=== PATIENT | male | born 1955 | race Caucasian/White ===

== ENCOUNTER 2018-06-15 15:56 | Inpatient (IN) | payer OTHER ==
--- NOTE | 2018-06-15 22:32 | PDCARCONS ---
Cardiology Consult Reason for Consult: pericardial tamponade Chief Complaint: shortness of breath, fatigue Requesting Physician: Patient was a transfer from [facility] History of Present Illness: Briefly, the patient is a 62 y/o male with history of lung cancer (ongoing left pleural drain), with work up at [facility] including a CT scan. On CT scan, there was a large pericardial effusion noted (>3 cm). Echocardiography reportedly suggested tamponade physiology given collapse of RA and RV. Patient was transferred to [facility], and upon arrival to the ICU, a stat echocardiogram was performed and interpreted by myself, at bedside. Both RA and RV collapse were noted with maximum of 4.5-5.0 cm circumferential pericardial effusion noted. Blood pressure in the ICU was noted to be 117/90 mm Hg. Mild to moderate dyspnea was noted. PND and orthopnea were noted. No fevers or chills. Discussion with patient about the noted echo findings. Risks and benefits of procedure were discussed with the patient, and rather than waiting on procedures for tomorrow with the tamponade physiology noted, the patient was taken to the cardiac medical laboratory assistant, and by both echocardiography and fluoroscopy, a pericardiocentesis was performed (see procedural note). At the conclusion of the procedure, 1850 cc of dark, pericardial fluid was easily removed. Echocardiographic review of the pericardium with limited remaining pericardial fluid noted. Lying flat, the patient was having a "burning" discomfort, but sitting up on the bed, the patient felt substantially better (per his reports). 12 point review of systems was unremarkable outside of that which was mentioned above. History Information - Allergies/Home Medication List Allergies/Adverse Reactions: No Known Allergies Allergy (Unverified 06/15/18 19:31) Home Medications: Losartan Potassium 100 mg PO DAILY 06/15/18 [Last Taken Unknown] oxyCODONE HCL/ACETAMINOPHEN [Oxycodone-Acetaminophen 10-325] 1 each PO Q4 PRN [Last Taken Unknown] I have personally reviewed and updated: family history, medical history, social history, surgical history Past Medical History: - Past Medical History hypertension Additional medical history: Lung cancer - Family History Positive for: non-pertinent - Social History Smoking Status: Former smoker Alcohol Use: None Drug Use: None Physical Exam Physical Exam: Temp Pulse Resp BP Pulse Ox 36.6 C 138 H 25 H 115/70 97 06/15/18 19:13 10/22/18 21:01 06/15/18 21:01 06/15/18 21:01 06/15/18 21:01 O2 (L/minute) 3 Constitutional: chronically ill appearing, obese, uncomfortable Eyes: PERRL, EOMI Ears, Nose, Mouth, Throat: moist mucous membranes, hearing normal Cardiovascular: JVD, pulses symmetric bilaterally, tachycardia, No edema Peripheral Pulses: 2+: dorsalis-pedis (R), dorsalis-pedis (L) Respiratory: reduced air movement Gastrointestinal: normoactive bowel sounds, soft, non-tender abdomen Skin: warm, normal color Musculoskeletal: full muscle strength Neurologic: AAOx3, sensation intact bilaterally, CN II-XII Intact Psychiatric: interacting appropriately, not anxious Lab and Imaging POC Glucose 153 mg/dL (70-100) H 06/15/18 20:13 EKG Interpretation: Positive for: other (Sinus tachycardia) A/P Assessment: Patient is a 62 y/o male with known lung cancer with pleural drain in place to the left. Pericardial tamponade was noted by echocardiography in [facility] and at [facility] (limited ICU echo with a 4.5-5.0 cm circumferential pericardial effusion with tamponade physiology - both RA and RV collapse was noted). Given the haemodynamics and the echocardiographic findings, the patient was taken to the cardiac medical laboratory assistant semi urgently for pericardiocentesis. Plan: Pericardiocentesis now. Risks and benefits of the procedure were discussed with the patient.
--- NOTE | 2018-06-15 22:49 | SUROPNOTE ---
MEME Operative Report - Surgery PROCEDURE: Pericardiocentesis INDICATION: Tamponade physiology by echocardiography PROCEDURE DETAILS: After consents were obtained, the patient was brought to the cardiac label press operator , and placed on the table in with a wedge to facilitate both comfort for the patient as well as ease of the procedure. Patient was not able to lie flat in the ICU, and there was no interest in reassessing this inability in the label press operator. Lidocaine was administered to the subxyphoid region, and following local anesthetic, a cook needle was placed without difficulty. The length of the cook needle was not long enough given the patient's girth to consistently access the pericardial sac, so the provided pericardiocentesis needle was used without difficulty to acquire consistent pericardial fluid return without pulsatile flow. Following this, a wire was placed, and under echo, then fluoro , the wire was easily placed into the pericardial sac. A dilator sheath was placed followed by the provided drain. The wire was removed, and a 60 cc syringe was used to pull 1850 cc of dark, blood colored fluid from the pericardial sac. Under fluoroscopic review, the pericardial fluid slowly was reduced with drop in heart rate noted (130-140 bpm to 120 bpm) as well as elevation in blood pressures (110-115 mm Hg systolic to 170 mm Hg systolic at the conclusion of the procedure. The patient did have complaints of pains near the conclusion of the procedure as the fluid was removed. The patient noted less discomfort sitting (then standing) post procedure versus lying flat on the bed. No complications were appreciated with this procedure. Patient was returned to the ICU
[2018-06-15] MEDS ORDERED: ACETAMINOPHEN 325 MG TAB PO PRN (22:58)
[2018-06-15] MEDS ORDERED: ONDANSETRON 4 MG/2 ML VIAL IVP PRN (22:58)
[2018-06-15] MEDS ORDERED: ONDANSETRON DISINTEGRATING 4 MG TAB PO PRN (22:58)
[2018-06-15] MEDS ORDERED: NS 1,000 ML IV SCH (23:00)
[2018-06-15] MEDS ORDERED: OXYCODONE/APAP 5/325 TAB PO PRN (23:16)
[2018-06-15] MEDS: KETOROLAC 30 MG/1 ML SDV IVP PRN (23:40)
[2018-06-15] MEDS: guaiFENesin 600 MG TAB.ER PO SCH (23:41)
[2018-06-15] MEDS ORDERED: LACTULOSE 20 GM/30 ML UDCUP PO PRN (23:55)
[2018-06-15] MEDS ORDERED: MAGNESIUM HYDROXIDE 30 ML UDCUP PO PRN (23:55)
[2018-06-15] MEDS ORDERED: BISACODYL 10 MG SUPP PR PRN (23:55)
[2018-06-15] MEDS ORDERED: POLYETHYLENE GLYCOL 3350 17 GM PKT PO PRN (23:55)
[2018-06-16 00:08] LABS: PLATELET COUNT 220 10^3/uL (150-400)
[2018-06-16] MEDS: SENNOSIDES/DOCUSATE SODIUM TAB PO SCH ×3 (00:25→23:04)
[2018-06-16] MEDS: OXYCODONE/APAP 5/325 TAB PO PRN ×3 (00:39→23:03)
[2018-06-16 00:45] LABS: INR 1.14 (0.83-1.16); PROTIME(PATIENT) 14.8 SEC (12.0-15.0)
[2018-06-16] MEDS: guaiFENesin 600 MG TAB.ER PO SCH ×3 (05:37→23:02)
[2018-06-16] MEDS: KETOROLAC 30 MG/1 ML SDV IVP PRN ×2 (05:39→14:14)
[2018-06-16] MEDS ORDERED: BACITRACIN 50,000 UNITS/10 ML SYR IRR ONE (07:40)
[2018-06-16] MEDS ORDERED: POLYMYXIN B SULFATE 500,000 UNIT/10 ML SYR IRR ONE (07:40)
--- NOTE | 2018-06-16 08:56 | ECHO ---
[email or web address] [address] [address] Main: [phone] Fax: Transthoracic Echocardiogram Name: JEB ZHAO MR#: [id number] Study Date: 06/15/2018 Study Time: 08:53 PM Date of : 1955 Age: 62 year(s) Height: 193 cm (76 in.) Weight: 117.94 kg (260 lb.) BSA: 2.48 m2 Gender: Male Examination: Limited Echo Indication: Stat pericardiocentisis Image Quality: Contrast: Requested by: Hussein Pearson BP: / Heart Rate: Rhythm: Tachycardia Indication: Stat pericardiocentisis Procedure Staff Hebrew Teacher: Codey Cruz RDCS Reading Physician: Sindy Minor MD Requesting Provider: Conclusions: This is a pre and during procedure limited echocardiogram to evaluate pericardial fluid. The intial scan demonstrated approximately 4.5 - 5 cm of fluid circumferentially around the heart. There is RV and RA collapse. 1850ml of fluid was evacuated from the pericardial space. Minimal residual effusion. Marked improvement in LV and RV diastolic filling.. Measurements: Chambers Valvular Assessment AV/MV Valvular Assessment TV/PV Normal Normal Normal Name Value Range Name Value Range Name Value Range Continued Measurements: Findings: Exam Comments: This is a pre and during procedure limited echocardiogram to evaluate pericardial fluid. The intial scan demonstrated approximately 4.5 - 5 cm of fluid circumferentially around the heart. There is RV and RA collapse. 1850ml of fluid was evacuated from the pericardial space. Minimal residual effusion. Marked improvement in LV and RV diastolic filling.. (No Signature Object) Patient: JEB ZHAO Study Date: 06/15/2018 Page 1 of 1 08:53 PM [id number]
[2018-06-16] MEDS: LOSARTAN POTASSIUM 50 MG TAB PO SCH (09:38)
--- NOTE | 2018-06-16 11:34 | PDMN ---
Medical Necessity Medical necessity: [facility] Cardiovascular Surgery or Procedure GR yo hx lung ca w/ SOB, ongoing L pleural drain, transferred from [facility] w/ large pericardial effusion >3cm, echo suggested tamponade w/ RA and RV collapse, pt taken to cardiac label press operator and pericardiocentesis performed, admit to IP status ICU.
--- NOTE | 2018-06-16 11:46 | GCON ---
INPATIENT ONCOLOGY CONSULTATION DATE OF CONSULTATION: 06/16/2018 REFERRING PHYSICIAN: Hussein Pearson DO OUTPATIENT ONCOLOGIST: Yefri Covington MD REASON FOR CONSULTATION: Metastatic rdu-eibdr-owty lung cancer with pericardial tamponade. HISTORY OF PRESENT ILLNESS: The patient is a 62-year-old former smoker with a history of non-small-c ell lung cancer. He presented this summer with metastatic disease. He had a large mass in the right upper lobe as well as a left-sided malignant pleural effusion. He had a PleurX catheter placed for drainage, which he continues to use. His tumor was high for PD-L1 expression, and he was started on therapy with pembrolizumab on February 27. He had a CT scan performed yesterday that showed improvement i n the primary mass, down to 4.3 x 1.6 cm from 6.3 x 2.4. The left pleural effusion was of smaller vo lume. The patient says that the fluid drainage has decreased in the past several weeks. However, e scan also showed evidence of a large pericardial effusion. The patient does note that he had been feeling more short of breath for the past several weeks and went to the emergency department in [facility] to seek medical attention. He was then transferred to [place] for consideration of a pericardial window. Because he had tamponade physiology, he was taken to the cardiac catheterization lab where a pericardiocentesis was performed. 1800 cc of bloody fluid was obtained. He says he is feeling muc h better. His blood pressure is normal, though he is still feeling mildly tachycardic. PAST MEDICAL HISTORY: Otherwise unremarkable. CURRENT MEDICATIONS: Include Toradol, Cozaar, Percocet. ALLERGIES: No known drug allergies. FAMILY HISTORY: Noncontributory. SOCIAL HISTORY: He is a former smoker. He lives alone. He is not currently working. REVIEW OF SYSTEMS: A 14-point review of system was negative aside from pertinent positives noted abo ve. PHYSICAL EXAMINATION: VITAL SIGNS: His temperature was 36.4, blood pressure 119/74, heart rate 112, oxygen saturation is 95% on 2 L. GENERAL: He was breathing comfortably. No acute distress. Scler ae anicteric. Oropharynx clear. NECK: Supple without lymphadenopathy. LUNGS: Clear to auscultati on bilaterally. CARDIAC: Regular rate and rhythm. No murmurs, gallops, or rubs. ABDOMEN: Normoac tive bowel sounds. Nontender. Nondistended. EXTREMITIES: Without edema. 2+ pulses. NEUROLOGIC: Alert and oriented x3. Strength and sensation were grossly intact. LABORATORY DATA: CBC was essentially normal. Basic metabolic panel was notable for a creatinine of 0.6 and BUN of 27, otherwise normal. IMPRESSION: This is a 62-year-old man with PV-L1-high lfy-cytyo-phlc lung cancer. The primary tumor appears to be responding well to first-line immunotherapy. He presented with a very large pericardi al effusion, which is almost certainly malignant. The effusion has likely been building up for quite some time, and I would not necessarily consider this a sign of failure of his therapy. I discussed the case at length with Dr. Pearson. He feels that a pericardial window procedure would st ill not be definitive, and the window may seal off and require additional procedures in the future. Therefore, we elected to simply draining the effusion until dry through the catheter and then remove it and follow the patient closely with serial echocardiograms. At which time the effusion continues to accumulate, we can consider a thorascopic approach to a window procedure at that time. Otherwise, he will continue on his immunotherapy as it does seem to be working. Thank you for this consultation. I will continue to follow the patient with you closely while he is in the hospital. /[id number]/MODL
--- NOTE | 2018-06-16 15:13 | ECHO ---
[email or web address] [address] [address] Main: [phone] Fax: Transthoracic Echocardiogram Name: JEB ZHAO MR#: [id number] Study Date: 06/16/2018 Study Time: 07:58 AM Date of : 1955 Age: 62 year(s) Height: ( ) Weight: ( ) BSA: Gender: Male Examination: Limited Echo Indication: LTD F/U tamponade; S/P pericardiocentesis Image Quality: Adequate Contrast: Requested by: Virgil Haley BP: / Heart Rate: Rhythm: Indication: LTD F/U tamponade; S/P pericardiocentesis Procedure Staff Primer Waterproofing Machine Operator: Paulette Terrell [facility] Reading Physician: Sindy Minor MD Requesting Provider: Conclusions: Normal global systolic LV function. There remains a small loculated effusion noted around the LV apex and RA. There are shaggy echodensity's noted in the pericardium mostly around the RV and LV apex. There is no evidence of tamponade. Measurements: Chambers Valvular Assessment AV/MV Valvular Assessment TV/PV Normal Normal Normal Name Value Range Name Value Range Name Value Range Continued Measurements: Findings: Left Ventricle: Normal global systolic LV function. Pericardium: There remains a small loculated effusion noted around the LV apex and RA. There are shaggy echodensity's noted in the pericardium mostly around the RV and LV apex. There is no evidence of tamponade. (No Signature Object) Patient: JEB ZHAO Study Date: 06/16/2018 Page 1 of 1 07:58 AM [id number]
--- NOTE | 2018-06-16 16:53 | ASMTCMCOM ---
CM Note CM Note Notes: 62yo male admitted for SOB, Fatigue, he transferred from [facility] with PE. He has a Hx of Lung CA. The ECHO noted a pericardial tamponade. Patient taken to cathode maker for pericardiocentesis. May not have discharge needs. Date Signed: 06/16/2018 04:53 PM Electronically Signed By:Caryn Roy LCSW
[2018-06-16] MEDS ORDERED: METOPROLOL TARTRATE 25 MG TAB PO ONE (18:11)
[2018-06-16] MEDS ORDERED: AMIODARONE HCL 100 ML IV ONE ×2 (18:40→23:00)
--- NOTE | 2018-06-16 19:09 | PDCARPN ---
Cardiology Progress Note Chief Complaint: Patient reports mild tenderness at pericardiocentesis drain site. Assessment/Plan: Assessment: 62-year-old male with history of hypertension and metastatic non-small cell lung cancer, ongoing left pleural drain, underwent CT scan at [facility] 06/15/2018, noting large pericardial effusion (greater than 3 cm). Echocardiogram done at [facility] suggesting tamponade physiology, with collapse of RA and RV. Transfer to [facility], stat echo done at that time, showing RA and RV collapse with maximum fusion of 4.5-5.0 cm. Taken immediately to tanbark laborer, in which pericardiocentesis with done, with greater than 1850 mL removed. Repeated echocardiogram on 06/16/2018, noting normal LV systolic function, small location of effusion noted around LV apex and RV, no evidence of tamponade. 06/16/2018: Patient reports significant improvement in his shortness of breath , and fatigue symptoms. Reports no chest pain or pressure. Pericardial drain with 40 more mL out since procedure. Patient noted to go in AFib with RVR, rates up to 140 BPM. Patient asymptomatic. Laboratory studies showing pericardial fluid positive for WBCs, RBCs, protein, glucose. AFB smear negative. G stain negative. Plan: 1. Pericardial effusion: Little drainage since procedure. With patient going into atrial fibrillation, drain removed with intact tip. Dr. Minor has discussed this with Dr. Pearson, who feels pericardial window is not necessary at this time. Will monitor with limited echocardiogram series, repeat limited echo in a.m.. 2. Paroxysmal atrial fibrillation: Went into atrial fibrillation this morning, rate 100s to 140s. Patient is asymptomatic. Will attempt to give 150 mg of amiodarone IV over 10 min now, to see if attempt to convert. Will start on beta -ghazala metoprolol tartrate, at 25 mg p.o. Twice daily. Patient with chads Vasc score of 1, but with recent pericardial effusion, will hold off on anticoagulation. 3. Hypertension: Blood pressure well controlled on home dose of losartan, no changes at this time. 4. Non-small cell lung cancer: Patient is currently undergoing immunotherapy. Being followed by Oncology, appreciate Dr. Magallanes consultation. 06/16/18 19:06 Subjective: He denies of any chest pressure, pain, orthopnea, PND, edema, lightheadedness, near-syncope, or syncopal events. Reports no palpitations. Feels his dyspnea on exertion has significantly improved. Reviewed/Discussed With: other (Dr Minor and Dr Ba) Objective: Vital Signs (8 Hrs) Temp Pulse Resp BP Pulse Ox 06/16/18 16:00 36.9 C 124 H 20 108/70 92 06/16/18 12:00 118 H 21 H 116/65 93 Intake/Output (24 Hrs) 06/15/18 06/16/18 06/17/18 05:59 05:59 05:59 Intake Total 100 Output Total 599 Balance -499 Intake: Oral (ml) 100 Output: Urine (ml) 550 Urinal 550 Chest Tube Output (ml) 8 Left Pleural 8 Pericardial Drain Output 41 (ml) Pericardial 41 Other: Weight 110.677 kg Intake Quantity Yes Sufficient Number of Voids Urinal 2 2 Result Diagrams: 06/17/18 03:55 06/17/18 03:55 - Physical Exam Constitutional: healthy appearing, no apparent distress Ears, Nose, Mouth, Throat: moist mucous membranes Cardiovascular: no murmurs, no rubs, no gallops, irregularly irregular, pulses symmetric bilat, No jugular vein distention, No carotid bruit Peripheral Pulses: 2+: carotid (R), carotid (L), dorsalis-pedis (R), dorsalis- pedis (L) Respiratory: other (Diminished in bases bilateral, no rhonchi, rales, or wheezing noted. No accessary muscle use, no intercostal muscle retraction noted.) Gastrointestinal: normoactive bowel sounds Skin: no rashes, warm, other (Pericardiocentesis drain removed, tip intact. Dressing change done. Left pleural effusion dressing CDI. ), No no edema (+1 peripheral edema bilateral lower extremities to knees.) Neurologic: AAOx3 Psychiatric: cooperative, interactive, following commands ICD10 Worksheet Patient Problems: Problems Problem Status Onset Pericardial effusion Acute - ICD10 Problem Qualifiers (1) Pericardial effusion
[2018-06-16] MEDS: METOPROLOL TARTRATE 25 MG TAB PO SCH (23:06)
[2018-06-17 04:37] LABS: PLATELET COUNT 192 10^3/uL (150-400)
[2018-06-17] MEDS: OXYCODONE/APAP 5/325 TAB PO PRN ×2 (08:36→20:16)
[2018-06-17] MEDS: guaiFENesin 600 MG TAB.ER PO SCH ×2 (08:37→20:11)
[2018-06-17] MEDS: SENNOSIDES/DOCUSATE SODIUM TAB PO SCH ×2 (08:37→20:12)
[2018-06-17] MEDS: METOPROLOL TARTRATE 25 MG TAB PO SCH ×2 (08:37→20:11)
[2018-06-17] MEDS: LOSARTAN POTASSIUM 50 MG TAB PO SCH (08:37)
[2018-06-17] MEDS ORDERED: AMIODARONE HCL 100 ML IV ONE (08:49)
--- NOTE | 2018-06-17 09:16 | ECHO ---
[email or web address] [address] [address] Main: [phone] Fax: Transthoracic Echocardiogram Name: JEB ZHAO MR#: [id number] Study Date: 06/17/2018 Study Time: 08:15 AM Date of : 1955 Age: 62 year(s) Height: 193 cm (76 in.) Weight: 110.68 kg (244 lb.) BSA: 2.41 m2 Gender: Male Examination: Limited Echo Indication: Pericardial effusion/eval post drain Image Quality: Contrast: Requested by: Donte Costello BP: 123 mmHg/89 mmHg Heart Rate: Rhythm: Indication: Pericardial effusion/eval post drain Procedure Staff Health Lead: Ashlee Vargas RDCS Reading Physician: Sindy Minor MD Requesting Provider: Conclusions: Normal global systolic LV function. There is a small to moderate loculated effusion containing fibrinous material anteriorly and around the RV apex. . Compared with 06/16/2018 similar findings Measurements: Chambers Valvular Assessment AV/MV Valvular Assessment TV/PV Normal Normal Normal Name Value Range Name Value Range Name Value Range Continued Measurements: Findings: Left Ventricle: Normal global systolic LV function. Exam Comments: There is a small to moderate loculated effusion containing fibrinous material anteriorly and around the RV apex. . (No Signature Object) Patient: JEB ZHAO Study Date: 06/17/2018 Page 1 of 1 08:15 AM [id number]
[2018-06-17] MEDS ORDERED: ATROPINE SULFATE 1 MG/10 ML SYR IVP ONE (10:43)
[2018-06-17] MEDS ORDERED: NS 1,000 ML IV ONE (10:43)
--- NOTE | 2018-06-17 11:17 | SOAPPROG ---
SOAP Progress Note Assessment/Plan: Assessment: 1. NSCLC, metastatic, PDL1+ 2. Pericardial effusion (malignant) 3. Atrial fibrillation - new after pericardiocentesis. Pericardial drain removed. Cardioversion scheduled for this PM. Plan: - will continue on pembrolizumab, as it appears to be effective in treating his cancer- next dose due 06/23 in [place] - will need serial echos (likely every 4-6 weeks) to monitor for recurrence of the effusion 25 min spent w/ pt and in coordination of care. 06/17/18 11:15 Subjective: somewhat tired. Objective: exam: NAD Lungs CTAB CV afib Abd: +BS NTND Ext: no edema Neuro: a+ox3. Vital Signs Temp Pulse Resp BP Pulse Ox 36.7 C 123 H 15 123/89 H 94 06/17/18 07:19 06/17/18 07:19 06/17/18 07:19 06/17/18 07:19 06/17/18 07:19 Microbiology 06/15/18 22:09 Mycobacterial Smear (CYRUS) - Final Pericardial Fluid - Aspirate 06/15/18 22:09 Gram Stain - Final Pericardial Fluid - Aspirate Laboratory Results 06/17/18 03:55 06/17/18 03:55 06/16/18 06/17/18 06/18/18 05:59 05:59 05:59 Intake Total 100 550 Output Total 599 Balance -499 550 PT 14.8 SEC (12.0-15.0) 06/16/18 00:00 INR 1.14 (0.83-1.16) 06/16/18 00:00 ICD10 Worksheet Patient Problems: Problems Problem Status Onset Pericardial effusion Acute
[2018-06-17] MEDS ORDERED: fentaNYL 100 MCG/2 ML INJ ONE (15:52)
[2018-06-17] MEDS ORDERED: MIDAZOLAM 2 MG/2 ML VIAL ONE ×2 (15:52→17:10)
[2018-06-17] MEDS ORDERED: ETOMIDATE 40 MG/20 ML INJ IVP ONE (16:41)
[2018-06-17] MEDS ORDERED: ATROPINE SULFATE 1 MG/10 ML SYR ONE (16:42)
--- NOTE | 2018-06-17 18:26 | PDCARPN ---
Cardiology Progress Note Chief Complaint: Patient reports fatigue Assessment/Plan: Assessment: 62-year-old male with history of hypertension and metastatic non-small cell lung cancer, ongoing left pleural drain, underwent CT scan at [facility] 06/15/2018, noting large pericardial effusion (greater than 3 cm). Echocardiogram done at [facility] suggesting tamponade physiology, with collapse of RA and RV. Transfer to [facility], stat echo done at that time, showing RA and RV collapse with maximum fusion of 4.5-5.0 cm. Taken immediately to solar lab technician, in which pericardiocentesis with done, with greater than 1850 mL removed. Repeated echocardiogram on 06/16/2018, noting normal LV systolic function, small location of effusion noted around LV apex and RV, no evidence of tamponade. 06/17/2018: Patient remained in atrial fibrillation despite removal of pericardial drain, starting on beta-blockers, IV loading. Patient underwent IVY cardioversion by Dr. Ba this afternoon, no thrombus noted in left atrium appendage. Successful conversion to sinus. Limited echo today showed no accumulation of pericardial fluid status post drain removal. H&H stable. TSH within normal limits. Patient continues report shortness of breath has significantly improved. Denies of any chest pressure or pain. Plan: 1. Pericardial effusion: Drain pulled yesterday. Echocardiogram shows no significant he buildup of fluid overnight by limited echo. Causes probable malignancy. Dr. Minor has discussed this with Dr. Pearson, who feels pericardial window is not necessary at this time. The patient's will plan for patient have a repeated limited echocardiogram next week as an outpatient. 2. Paroxysmal atrial fibrillation: IVY cardioversion done today, 24 hr after starting of AFib. Back into sinus rhythm. Chads Vasc score of 1 (hypertension) . With recent pericardiocentesis, no anticoagulation at this time. If recurrence, then consider full anticoagulation. 3. Hypertension: Blood pressure well controlled on home dose of losartan, no changes at this time. 4. Non-small cell lung cancer: Patient is currently undergoing immunotherapy. Being followed by Oncology, appreciate Dr. Magallanes consultation. 06/17/18 18:20 Subjective: He denies of any chest pain, pressure, shortness of breath, orthopnea, PND palpitation, lightheadedness, near-syncope or syncopal events. Reviewed/Discussed With: other (Dr Mejia) Objective: Vital Signs (8 Hrs) Pulse Resp BP Pulse Ox 06/17/18 11:18 103 H 12 128/81 H 96 Intake/Output (24 Hrs) 06/16/18 06/17/18 06/18/18 05:59 05:59 05:59 Intake Total 100 550 Output Total 599 Balance -499 550 Intake: Oral (ml) 100 350 IV Infused (ml) 200 Amiodarone HCl 100 ml @ 200 600 mls/hr IV ONCE ONE Rx #:[id number] Output: Urine (ml) 550 Urinal 550 Chest Tube Output (ml) 8 Left Pleural 8 Pericardial Drain Output 41 (ml) Pericardial 41 Other: Weight 110.677 kg 118 kg Intake Quantity Yes Sufficient Number of Voids Toilet 3 Urinal 2 2 Result Diagrams: 06/17/18 03:55 06/17/18 03:55 - Physical Exam Constitutional: WDWN, no apparent distress Ears, Nose, Mouth, Throat: moist mucous membranes Cardiovascular: regular rate and rhythm, no murmurs, pulses symmetric bilat, No jugular vein distention, No carotid bruit Peripheral Pulses: 1+: dorsalis-pedis (R), dorsalis-pedis (L), 2+: carotid (R), carotid (L) Respiratory: other (Come back diminished in bases bilateral, no rhonchi, rales, or wheezing noted. No accessary muscle use, no intercostal muscle retraction noted.) Gastrointestinal: normoactive bowel sounds, no masses Skin: warm, no edema, other (Current left lateral) Neurologic: AAOx3 Psychiatric: cooperative, interactive, following commands ICD10 Worksheet Patient Problems: Problems Problem Status Onset Pericardial effusion Acute - ICD10 Problem Qualifiers (1) Pericardial effusion
--- NOTE | 2018-06-17 18:44 | CPIP ---
DATE OF PROCEDURE: 06/17/2018 PROCEDURE PERFORMED: IVY guided cardioversion. COMPLICATIONS: None. INDICATIONS/APPROPRIATE USE CRITERIA: The patient was admitted for pericardiocentesis for a very lar ge and bloody pericardial effusion, likely related to the patient's diagnosis of lung cancer. The fl uid was successfully evacuated, but unfortunately the patient developed atrial fibrillation. The cat heter has been removed. The patient has remained in atrial fibrillation for over 24 hours, prompting a IVY guided attempted cardioversion. PROCEDURE IN DETAIL: After informed consent was obtained, n.p.o. status was confirmed. The patient underwent a targeted IVY to evaluate for risk factors for thrombus in the left atrial appendage and l eft atrium. The patient has no evidence of spontaneous echo contrast within the left heart and the l eft atrial appendage is free of clot. After deep sedation had been achieved with 0.08 mg/kg of etomidate given intravenously, the patient u nderwent successful elective DC cardioversion with 300 joules of synchronized countershock delivered with a patch in the anterior and posterior position with subsequent return of the rhythm normal sinus at a rate of 65 with a normal blood pressure and pulse. The patient will convalesce here in the pos t cath recovery unit and should be able to return to his telemetry room once he is able to take p.o. and ambulate without assistance. Copy requested to: Primary Care /[id number]/MODL
[2018-06-18] MEDS: OXYCODONE/APAP 5/325 TAB PO PRN ×2 (01:13→08:37)
[2018-06-18] MEDS: guaiFENesin 600 MG TAB.ER PO SCH (08:36)
[2018-06-18] MEDS: METOPROLOL TARTRATE 25 MG TAB PO SCH (08:37)
[2018-06-18] MEDS: SENNOSIDES/DOCUSATE SODIUM TAB PO SCH (08:38)
[2018-06-18] MEDS: LOSARTAN POTASSIUM 50 MG TAB PO SCH (08:38)
--- NOTE | 2018-06-18 09:17 | CPEKG ---
Test Reason : OPEN Blood Pressure : / mmHG Vent. Rate : 115 BPM Atrial Rate : 114 BPM P-R Int : 177 ms QRS Dur : 095 ms QT Int : 333 ms P-R-T Axes : -28 -58 059 degrees QTc Int : 461 ms Sinus tachycardia Inferior infarct, old Confirmed by iVrgil Haley ([id number]) on 06/18/2018 9:16:58 AM Referred By: Confirmed By:Virgil Haley
--- NOTE | 2018-06-18 09:23 | CPEKG ---
Test Reason : OPEN Blood Pressure : / mmHG Vent. Rate : 116 BPM Atrial Rate : 133 BPM P-R Int : 036 ms QRS Dur : 073 ms QT Int : 321 ms P-R-T Axes : 000 -31 049 degrees QTc Int : 446 ms Atrial fibrillation Left axis deviation Low voltage, extremity and precordial leads Consider anterior infarct Atrial fibrillation is new in comparison to prior Confirmed by Virgil Haley ([id number]) on 06/18/2018 9:22:36 AM Referred By: Confirmed By:Virgil Haley
--- NOTE | 2018-06-18 11:22 | SOAPPROG ---
[facility] Progress Note Assessment/Plan: Assessment: 1. NSCLC, metastatic, PDL1+ 2. Pericardial effusion (malignant) 3. Atrial fibrillation - now in NSR s/p cardioversion Pericardial drain removed. Cytology shows malignant cells. Plan: - d/c to home today - f/u with Dr. Covington in our [place] office on Saturday 06/23 - echo next week per cardiology -will consider window procedure if fluid reaccumulates Subjective: feels well. Objective: exam: NAD dullness @ L base CV RRR no MGR Abd: +BS NT ND Ext: no edema Skin: no petechie, purpura Vital Signs Temp Pulse Resp BP Pulse Ox 37.0 C 83 16 128/76 H 96 06/18/18 08:00 06/18/18 08:00 06/18/18 08:00 06/18/18 08:00 06/18/18 08:00 Microbiology 06/15/18 22:09 Gram Stain - Final Pericardial Fluid - Aspirate Laboratory Results 06/17/18 03:55 06/17/18 03:55 06/17/18 06/18/18 06/19/18 05:59 05:59 05:59 Intake Total 550 600 Output Total 300 Balance 550 300 PT 14.8 SEC (12.0-15.0) 06/16/18 00:00 INR 1.14 (0.83-1.16) 06/16/18 00:00 ICD10 Worksheet Patient Problems: Problems Problem Status Onset Pericardial effusion Acute
[2018-06-18 11:50] VITALS: BP 102/66
--- NOTE | 2018-06-18 16:31 | CPEKG ---
Test Reason : OPEN Blood Pressure : / mmHG Vent. Rate : 113 BPM Atrial Rate : 000 BPM P-R Int : 196 ms QRS Dur : 081 ms QT Int : 346 ms P-R-T Axes : 000 -16 016 degrees QTc Int : 475 ms Atrial fibrillation Low voltage, extremity leads Confirmed by Virgil Haley ([id number]) on 06/18/2018 4:31:10 PM Referred By: Confirmed By:Virgil Haley
--- NOTE | 2018-06-18 16:37 | CPEKG ---
Test Reason : OPEN Blood Pressure : / mmHG Vent. Rate : 088 BPM Atrial Rate : 088 BPM P-R Int : 162 ms QRS Dur : 082 ms QT Int : 379 ms P-R-T Axes : 036 -30 015 degrees QTc Int : 459 ms Sinus rhythm Probable left atrial enlargement Inferior infarct, old Sinus rhythm has replaced atrial fibrillation on prior Confirmed by Virgil Haley ([id number]) on 06/18/2018 4:37:35 PM Referred By: Confirmed By:Virgil Haley
--- NOTE | 2018-06-18 16:39 | GDS ---
SUPERVISING LUMBER TRIPPER: Dr. Mir Ba. CONSULTATIONS: Dr. Pearson of CT surgery, and Dr. Cruzito Magallanes of Oncology. ADMISSION DIAGNOSES: 1. Metastatic non-small cell lung cancer. 2. Pleural effusion with left pleural drain. 3. Hypertension. 4. Pericardial effusion causing tamponade. DISCHARGE DIAGNOSES: 1. Metastatic non-small cell lung cancer. 2. Left pleural effusion with left pleural drain. 3. Pericardial effusion, status post pericardiocentesis. 4. Paroxysmal atrial fibrillation. PROCEDURES PERFORMED DURING HOSPITALIZATION: 1. Chest x-ray. 2. Echocardiogram. 3. Pericardiocentesis. 4. IVY cardioversion. BRIEF HISTORY: Please see H and P. The patient is a 62-year-old male with known lung cancer, with o ngoing pleural perfusions, with clear drainage. He was initially seen at [facility] fo r a CT scan and noted to have a significant pericardial effusion. He was transferred to [facility] for further evaluation and procedures. HOSPITAL COURSE: Patient was admitted directly to the intensive care unit. There, he was met by Dr. Haley of our practice, in which an urgent echocardiogram was done, showing increased size of his per icardial effusion and ongoing tamponade. He was taken urgently/emergently to cardiac catheterization lab. There, a pericardiocentesis was performed, with over 1850 mL drained from his pericardial sac. No apparent complications. Patient was transferred to the intensive care unit with drain intact. The following day, he had very minimal out of his drain, only approximately 40 mL. He reports signif icant improvement in his overall shortness of breath and fatigue symptoms. His vital signs remained stable. Unfortunately, he did go into atrial fibrillation in the afternoon of the , drain was re moved, and was started on beta ghazala and small boluses of IV amiodarone. Unfortunately, he did not convert with this, and on June 17, was taken to the [facility] in which he underwent a IVY cardioversion , ensuring no left atrial appendage clot. He was successfully converted back in sinus rhythm, in whi ch he has maintained since the procedure. Today, he is up and walking on the unit, reports no chest pain, pressure or significant increased shortness of breath. CURRENT PHYSICAL EXAMINATION: GENERAL APPEARANCE: Medium built, mildly obese male. He is alert and oriented to person, place, time, and situation. Appears to be under no acute distress. V ITAL SIGNS: Current vital signs are blood pressure 102/66, heart rate 71, sinus rhythm on the monito r, respirations 16, saturating 95% on room air, temperature 36.7 degrees Celsius. HEENT: Head is no rmocephalic. Lips and tongue are pink and moist, with no signs of cyanosis. Conjunctivae pink. NEC K: Trachea is midline. +2 carotid pulses bilateral. No auscultated bruits, no jugular vein distent ion. RESPIRATORY: Lungs diminished in bases bilateral, no rhonchi, rales or wheezes, no accessory m uscle use, no intercostal muscle retraction noted. CARDIAC: Regular rate, regular rhythm, S1, S2, n o S3, S4, gallops, rubs or murmurs noted. ABDOMEN: Soft, nontender, bowel sounds x4 quadrants, no o rganomegaly, no palpable masses. SKIN: [place], warm, dry, no cyanosis, no clubbing, no peripheral ema ma. Catheter insertion site, left anterior lower chest, with no redness, swelling, drainage, ecchymo sis, or hematoma. LABORATORY STUDIES: Laboratory studies drawn yesterday showed WBC of 5.77, hemoglobin 13.0, hematocr it of 40.4, platelet count 192, sodium 137, potassium 4.1, chloride 102, CO2 29, BUN 20, creatinine 0 .7, glucose 87, calcium 8.3. Pericardial fluid was sent to the lab and was negative for AFB, no orga nisms seen, negative Gram stain. Cytology was done, which was positive for malignant cells. PROCEDURES: Echocardiogram done on admission during a post limited echocardiogram evaluating pericar dial fluid, scan demonstrated between 4.5 to 5 cm fluid circumflex around the heart. The RA and RV w ere collapsed; 1850 mL were removed, mild residual remained, with markedly improved LV and RV functio n. Chest x-ray done on the showing small right pleural effusion, enlarged cardiac silhouette. No pneumothorax. Echocardiogram done on June 16 in the morning showing normal LV systolic functio n, remained a small local effusion noted around the LV apex and RA, no evidence of tamponade. Repeat ed electrocardiogram on the remained unchanged. IVY cardioversion, as mentioned above. DISCHARGE DISPOSITION: Patient will be discharged home in stable condition. He is under activity re strictions of no strenuous activity for the next week. DISCHARGE MEDICATIONS: Please see discharge medication reconciliation sheet. Note, patient has been started on metoprolol tartrate at 25 mg p.o. b.i.d. He has a CHADS-VASc score of with re cent pericardial effusion, being in atrial fibrillation for less than 48 hours. No anticoagulation w as added to his medication regimen. DISCHARGE INSTRUCTIONS: Post pericardial effusion pericardiocentesis instructions went over with the patient, including monitoring for signs of infection, bleeding precautions, activity restrictions. Also discussed atrial fibrillation and new medications. The patient will have a followup visit next Friday with his primary oncologist, Dr. Covington. The patient is also scheduled next week to have a limited repeated echocardiogram done on June 25, and he will follow up with Dr. Melendez of our pr actice on the . At the time of discharge, patient verbalizes understanding of all instructions an d has no questions or concerns. Total time spent on discharge: Greater than 30 minutes. Copy requested to: Dr. Nadya Senamont [facility] Pulmonology /[id number]/MODL
--- NOTE | 2018-06-19 17:49 | ECHO ---
[email or web address] [address] [address] Main: [phone] Fax: Transesophageal Echocardiography Name: JEB ZHAO MR#: [id number] Study Date: 06/17/2018 Study Time: 04:50 PM Date of : 1955 Age: 62 year(s) Height: 193 cm (76 in.) Weight: 117.94 kg (260 lb.) BSA: 2.48 m2 Gender: Male Examination: IVY Indication: a fib with rvr Image Quality: Adequate Contrast: Requested by: Donte Costello Heart Rate: Rhythm: BP: / Procedure Staff Ground Instructor Basic: Cassandra Delgado RDCS Reading Physician: Mir Ba MD Requesting Provider: IVY Exam Details Conclusions: Normal size left ventricle. Normal global systolic LV function. Normal size right ventricle. Normal RV function. The left atrium is normal in size. The left atrial appendage is unilobular. Good color flow doppler in the left atrial appendage. Normal PW-Doppler flow pattern. No thrombus in left appendage. The right atrium is normal in size. The mitral valve is normal in appearance and function. Mild mitral valve regurgitation is present. No mitral stenosis is present. The aortic valve is tri-leaflet. There is no significant aortic valve regurgitation. No aortic valve stenosis is present. The tricuspid valve is normal in appearance and function. Mild tricuspid regurgitation is present. The pulmonic valve is normal in appearance and function. There is no pulmonic regurgitation seen. Small pericardial effusion. Cannot rule out mass in aortoatrial curtain. We proceeded with succesful IVY guided cardioversion. Measurements: Chambers Valvular Assessment AV/MV Valvular Assessment TV/PV Patient: JEB ZHAO Study Date: 06/17/2018 Page 1 of 2 04:50 PM Normal Normal Normal Name Value Range Name Value Range Name Value Range Additional Measurements: Findings: Left Ventricle: Normal size left ventricle. Normal global systolic LV function. Right Ventricle: Normal size right ventricle. Normal RV function. Left Atrium: The left atrium is normal in size. Left Atrial Appendage: The left atrial appendage is unilobular. Good color flow doppler in the left atrial appendage. Normal PW-Doppler flow pattern. No thrombus in left appendage. Right Atrium: The right atrium is normal in size. Mitral Valve: The mitral valve is normal in appearance and function. Mild mitral valve regurgitation is present. No mitral stenosis is present. Aortic Valve: The aortic valve is tri-leaflet. There is no significant aortic valve regurgitation. No aortic valve stenosis is present. Tricuspid Valve: The tricuspid valve is normal in appearance and function. Mild tricuspid regurgitation is present. Pulmonic Valve: The pulmonic valve is normal in appearance and function. There is no pulmonic regurgitation seen. Pericardium: Small pericardial effusion. l1n (No Signature Object) Patient: JEB ZHAO Study Date: 06/17/2018 Page 2 of 2 04:50 PM [id number]
== END 2018-06-18 13:55 | disposition home or self-care (01) | DRG 315 ==
LOC: F2N 19:00 → F2W 06-16 13:25
PROVIDERS: ADMIT Thoracic Surgery (Cardiothoracic Vascular Surgery); ATTEND Internal Medicine Cardiovascular Disease
PROC: 0W9D3ZZ Drainage of Pericardial Cavity, Percutaneous Approach (ICD-10-PCS; principal; 2018-06-15)
PROC: B245ZZ4 Ultrasonography of Left Heart, Transesophageal (ICD-10-PCS; 2018-06-17)
PROC: 5A2204Z Restoration of Cardiac Rhythm, Single (ICD-10-PCS; 2018-06-17)
DX: I31.3 Pericardial effusion (noninflammatory) (principal); C34.11 Malignant neoplasm of upper lobe, right bronchus or lung; J91.0 Malignant pleural effusion; I31.4 Cardiac tamponade; I10 Essential (primary) hypertension; I48.0 Paroxysmal atrial fibrillation
CPT/HCPCS: J0282; J0461; J1885; J2250; J3010

== ENCOUNTER 2018-07-11 11:02 | Observation (INO) | payer OTHER ==
[2018-07-11] MEDS ORDERED: ASPIRIN 81 MG CHEWABLE TAB PO ONE (11:23)
[2018-07-11 11:43] LABS: PLATELET COUNT 214 10^3/uL (150-400)
[2018-07-11 11:51] LABS: INR 0.92 (0.83-1.16); PROTIME(PATIENT) 12.6 SEC (12.0-15.0)
[2018-07-11] MEDS ORDERED: IOPAMIDOL (ISOVUE 370) 100 ML BTL IV ONE (13:42)
--- NOTE | 2018-07-11 13:51 | EDPHY ---
H & P Time Seen by Provider: 07/11/18 11:23 HPI/ROS: HPI Chest pain, shortness of breath. 62-year-old male by private vehicle. This patient has a history of non-small cell lung cancer as well as a recent history of admission to our hospital for pericardial tamponade requiring a pericardial centesis. He presents to the emergency department today complaining of 2 days of worsening shortness of breath and chest pain which he describes as a band tightness across his anterior lower chest. Denies fever. Has not had a cough. He states that he has a left-sided thoracentesis drain which she has been using and has had decreased output over the last few days. ROS: Constitutional: No fever, no chills. No weakness. Eyes: No discharge. No changes in vision. ENT: No sore throat. No nasal congestion or rhinorrhea. Respiratory: No cough. As above. Cardiac: As above, no palpitations. Gastrointestinal: No abdominal pain, no vomiting, no diarrhea. Genitourinary: No hematuria. No dysuria or increased frequency with urination. Musculoskeletal: No back pain. No neck pain. No myalgias or arthralgias. Skin: No rashes. Neurological: No headache. No focal weakness or altered sensation. Past medical history: Metastatic non-small cell lung cancer, pleural effusion with left pleural drain, hypertension, pericardial effusion causing pericardial tamponade, paroxysmal atrial fibrillation, recent admission from June 15 through June 18 for management of above. He has been managed at [facility] as well as [facility]. Social history: Nonsmoker. No alcohol. He is here by himself. Physical Exam: General Appearance: Alert, no distress. This patient is responding to questions appropriately and in full sentences. This patient appears well- hydrated and well-nourished. Eyes: Pupils equal and round no pallor or injection. No lid edema, erythema or injection. Respiratory: There are no retractions, lungs are clear to auscultation anterior with good air movement bilaterally. Decreased lung sounds posteriorly at the bases, greater on the right side versus the left side. No tachypnea. Cardiovascular: Regular rate and rhythm. No murmur appreciated. Gastrointestinal: Abdomen is soft and nontender, no masses, bowel sounds normal. No focal tenderness at McBurney's point. No Ocasio sign. Neurological: Motor sensory function is grossly intact. Cranial nerves are normal. Gait is normal. Skin: Warm and dry, no rashes. Musculoskeletal: Neck is supple and nontender. No JVD. Extremities are symmetrical. All joints range without pain or impingement. Psychiatric: No agitation. No depression. Database: EKG: EKG time is 11:20 a.m.; EKG shows a narrow complex normal sinus rhythm with a ventricular rate of 71. Borderline left axis deviation. Low voltage in the precordial leads. The UT, QRS, QT intervals are within normal limits. There are no ST-T wave changes indicative of ischemic or injury pattern. No evidence of right heart strain. Interpreted by me. Imaging: Chest x-ray AP portable: Large heart, persistent right-sided pleural effusion with associated opacity. Unchanged from June 15 study. No pneumothorax. Interpreted by me. CT angiogram of chest: No pulmonary embolism. No dissection. No significant pericardial effusion. Please see report by Dr. Juan Bolden for further details. Procedures: Emergency department course: Triage vital signs reviewed and are unremarkable. Patient afebrile. Pulse oximetry on room air 97%. IV placed. Patient placed on a gambling monitor. EKG obtained and reviewed by myself. 3:10 p.m., hyperkalemia with a for potassium of 5.5. Will initially treat this with IV fluids. 500 cc of IV normal saline ordered. Will consider furosemide as well. Results of his CT angiogram discussed. Results of his blood work reviewed with him. I feel that pneumonia affection etiology is unlikely at this time. No fever. No cough. Vital signs have been very stable while he has been in the emergency department. I explained to the patient that we would admit him to the hospitalist service for further evaluation and management. All of his questions were answered. He was admitted in stable condition. 3:15 p.m., spoke with on-call hospitalist, Dr. Serenity Angel. Case discussed in detail with her. Lasix will be held for now and potassium repeated after IV fluids. She accepts this patient for admission to telemetry observation. Patient admitted in stable condition. Differential Diagnosis: The differential diagnosis on this patient includes but is not limited to pulmonary embolism, pneumonia, pericardial effusion with tamponade. This represents a partial list of diagnoses considered. These considerations are based on history, physical exam, past history, reassessment and diagnostic testing. Smoking Status: Former smoker Constitutional: Initial Vital Signs Temperature (C) 36.8 C 07/11/18 11:11 Heart Rate 76 07/11/18 11:11 Respiratory Rate 16 07/11/18 11:11 Blood Pressure 132/83 H 07/11/18 11:11 O2 Sat (%) 97 07/11/18 11:11 O2 Delivery Mode Room Air Allergies/Adverse Reactions: No Known Allergies Allergy (Verified 07/11/18 11:09) Home Medications: Medication Instructions Recorded Losartan Potassium 07/11/18 Metoprolol ER-Hctz 25-12.5 mg 07/11/18 Pembrolizumab 07/11/18 Medical Decision Making - Diagnostics Imaging Results: Imaging Impressions Chest X-Ray 07/11/18 11:23 Impression: 1. Cardiac enlargement suggesting congestive heart failure. 2. Persistent right pleural effusion and right lower lung opacity with right hilar fullness, similar to the May study. - Data Points Laboratory Results: Laboratory Results 07/11/18 11:30 07/11/18 11:30 07/11/18 07/11/18 07/11/18 11:34 11:30 11:30 WBC RBC Hgb Hct MCV MCH MCHC RDW Plt Count MPV Neut % (Auto) Lymph % (Auto) Bacon % (Auto) Eos % (Auto) Baso % (Auto) Nucleat RBC Rel Count Absolute Neuts (auto) Absolute Lymphs (auto) Absolute Monos (auto) Absolute Eos (auto) Absolute Basos (auto) Absolute Nucleated RBC Immature Gran % Immature Gran # PT 12.6 SEC SEC (12.0-15.0) INR 0.92 (0.83-1.16) APTT 32.2 SEC SEC (23.0-38.0) D-Dimer 2.22 ug/mLFEU H ug/mLFEU (0.00-0.50) Sodium 137 mEq/L mEq/L (135-145) Potassium 5.5 mEq/L H mEq/L (3.3-5.0) Chloride 105 mEq/L mEq/L (97-110) Carbon Dioxide 23 mEq/l mEq/l (22-31) Anion Gap 9 mEq/L mEq/L (6-14) BUN 18 mg/dL mg/dL (7-23) Creatinine 0.6 mg/dL L mg/dL (0.7-1.3) Estimated GFR > 60 Glucose 118 mg/dL H mg/dL (70-100) Calcium 9.5 mg/dL mg/dL (8.5-10.4) POC Troponin I 0.00 ng/mL ng/mL (0.00-0.08) NT-Pro-B Natriuret Pep 193 pg/mL H pg/mL (0-125) Specimen Hemolysis 199 07/11/18 11:30 WBC 7.99 10^3/uL 10^3/uL (3.80-9.50) RBC 5.21 10^6/uL 10^6/uL (4.40-6.38) Hgb 15.2 g/dL g/dL (13.7-17.5) Hct 45.2 % % (40.0-51.0) MCV 86.8 fL fL (81.5-99.8) MCH 29.2 pg pg (27.9-34.1) MCHC 33.6 g/dL g/dL (32.4-36.7) RDW 13.3 % % (11.5-15.2) Plt Count 214 10^3/uL 10^3/uL (150-400) MPV 10.3 fL fL (8.7-11.7) Neut % (Auto) 73.9 % % (39.3-74.2) Lymph % (Auto) 13.4 % L % (15.0-45.0) Bacon % (Auto) 10.8 % % (4.5-13.0) Eos % (Auto) 1.1 % % (0.6-7.6) Baso % (Auto) 0.5 % % (0.3-1.7) Nucleat RBC Rel Count 0.0 % % (0.0-0.2) Absolute Neuts (auto) 5.91 10^3/uL 10^3/uL (1.70-6.50) Absolute Lymphs (auto) 1.07 10^3/uL 10^3/uL (1.00-3.00) Absolute Monos (auto) 0.86 10^3/uL H 10^3/uL (0.30-0.80) Absolute Eos (auto) 0.09 10^3/uL 10^3/uL (0.03-0.40) Absolute Basos (auto) 0.04 10^3/uL 10^3/uL (0.02-0.10) Absolute Nucleated RBC 0.00 10^3/uL 10^3/uL (0-0.01) Immature Gran % 0.3 % % (0.0-1.1) Immature Gran # 0.02 10^3/uL 10^3/uL (0.00-0.10) PT INR APTT D-Dimer Sodium Potassium Chloride Carbon Dioxide Anion Gap BUN Creatinine Estimated GFR Glucose Calcium POC Troponin I NT-Pro-B Natriuret Pep Specimen Hemolysis Medications Given: Sodium Chloride (Ns) 500 mls @ 1,000 mls/hr IV EDNOW ONE PRN Reason: Protocol Stop: 07/11/18 15:36 Last Admin: 07/11/18 15:18 Dose: 500 mls Discontinued Medications Aspirin (Aspirin) 324 mg PO EDNOW ONE Stop: 07/11/18 11:24 Last Admin: 07/11/18 11:38 Dose: 324 mg Point of Care Test Results: Chemistry 07/11/18 11:34 POC Troponin I 0.00 ng/mL ng/mL (0.00-0.08) Departure - Departure Disposition: [facility] In[facility] Acute Clinical Impression: Dyspnea, Chest pain, Hyperkalemia, Non-small cell lung cancer Referrals: Demetrio Bustos MD [Primary Care Provider] - As per Instructions
[2018-07-11] MEDS ORDERED: NS 500 ML IV ONE (15:07)
--- NOTE | 2018-07-11 15:39 | CPEKG ---
Test Reason : OPEN Blood Pressure : / mmHG Vent. Rate : 071 BPM Atrial Rate : 072 BPM P-R Int : 179 ms QRS Dur : 095 ms QT Int : 398 ms P-R-T Axes : 016 -19 013 degrees QTc Int : 433 ms Sinus rhythm Borderline left axis deviation Low voltage, precordial leads Confirmed by Fransisca Reid ([id number]) on 07/11/2018 3:38:43 PM Referred By: Confirmed By:Fransisca Reid
[2018-07-11] MEDS ORDERED: ONDANSETRON 4 MG/2 ML VIAL IVP PRN (16:09)
[2018-07-11] MEDS ORDERED: ACETAMINOPHEN 325 MG TAB PO PRN (16:09)
[2018-07-11] MEDS ORDERED: LORazepam 0.5 MG TAB PO PRN (16:09)
[2018-07-11] MEDS ORDERED: oxyCODONE IR 5 MG TAB PO PRN (16:09)
[2018-07-11] MEDS ORDERED: PROMETHAZINE HCL 25 MG/ML INJ IVP PRN (16:09)
[2018-07-11] MEDS ORDERED: ONDANSETRON DISINTEGRATING 4 MG TAB PO PRN (16:09)
[2018-07-11] MEDS ORDERED: OXYCODONE/APAP 5/325 TAB PO PRN (16:13)
--- NOTE | 2018-07-11 17:52 | PDGENHP ---
History and Physical - Chief Complaint chest pain/sob - History of Present Illness 62 yo M with PMH of metastatic NSCLC and recent admission for cardiac tamponade with large pericardial effusion s/p drainage of nearly 2L of fluid presenting with per his report sxs similar to that. He notes that he was discharged from here on the 18 of June and had been doing very well until yesterday when he developed chest pain along with a tight band like sensation wrapping across his chest to the back. He notes it was very similar to what he experienced in May and at that time he was told that had he waited to be seen even for several more hours that he might have . He states that currently the pain is completely gone and that he does not really want to stay in the hospital but agrees to do so. He states he has been followed by Dr. Melendez of [facility] since discharge and that on his last visit he did have a limited echo showing no recurrence of effusion. He has also had a pleural drain in place on the left that has almost stopped putting out any fluid at this point. He denies fever or chills, cough or sputum production or other changes in his health. History Information - Allergies/Home Medication List Allergies/Adverse Reactions: No Known Allergies Allergy (Verified 07/11/18 15:37) Home Medications: Losartan Potassium 100 mg PO DAILY 07/11/18 [Last Taken 07/10/18] Metoprolol Tartrate [Lopressor 25 mg (*)] 25 mg PO BID 07/11/18 [Last Taken 09:00] Pembrolizumab [Keytruda] 200 mg IV Q21D 07/11/18 [Last Taken 06/23/18] guaiFENesin [Mucinex 600 MG (*)] 600 mg PO BID 07/11/18 [Last Taken 07/11/18 09: 00] oxyCODONE HCL/ACETAMINOPHEN [Percocet 10-325 mg Tablet] 1 each PO Q4H PRN [Last Taken 07/11/18 09:00] I have personally reviewed and updated: family history, medical history, social history, surgical history - Past Medical History atrial fibrillation, cancer (metasatic NSCLC), hypertension Additional medical history: malignant pleural effusions. pericardial effusion with tamponade - Surgical History Reports: cancer surgery Additional surgical history: pericardial drain - Family History Positive for: non-pertinent - Social History Smoking Status: Former smoker Alcohol Use: None Drug Use: None Additional social history: lives alone Review of Systems Review of Systems: ROS: 10pt was reviewed & negative except for what was stated in HPI & below Physical Exam Physical Exam: Temp Pulse Resp BP Pulse Ox 36.7 C 75 19 139/85 H 94 07/11/18 16:57 07/11/18 16:57 07/11/18 16:57 07/11/18 16:57 07/11/18 16:57 Constitutional: no apparent distress, appears nourished Eyes: PERRL, anicteric sclera Ears, Nose, Mouth, Throat: moist mucous membranes, hearing normal Cardiovascular: regular rate and rhythym, no murmur, rub, or gallop, edema ( bilateral lower extremity ) Respiratory: no respiratory distress, no rales or rhonchi Gastrointestinal: normoactive bowel sounds, soft, non-tender abdomen Genitourinary: no bladder tenderness Skin: warm, normal color Musculoskeletal: no muscle tenderness Neurologic: AAOx3 Psychiatric: interacting appropriately, not anxious, not encephalopathic Lab Data & Imaging Review 07/11/18 11:30 07/11/18 11:30 WBC 7.99 10^3/uL (3.80-9.50) 07/11/18 11:30 RBC 5.21 10^6/uL (4.40-6.38) 07/11/18 11:30 Hgb 15.2 g/dL (13.7-17.5) 07/11/18 11:30 Hct 45.2 % (40.0-51.0) 07/11/18 11:30 MCV 86.8 fL (81.5-99.8) 07/11/18 11:30 MCH 29.2 pg (27.9-34.1) 07/11/18 11:30 MCHC 33.6 g/dL (32.4-36.7) 07/11/18 11:30 RDW 13.3 % (11.5-15.2) 07/11/18 11:30 Plt Count 214 10^3/uL (150-400) 07/11/18 11:30 MPV 10.3 fL (8.7-11.7) 07/11/18 11:30 Neut % (Auto) 73.9 % (39.3-74.2) 07/11/18 11:30 Lymph % (Auto) 13.4 % (15.0-45.0) L 07/11/18 11:30 Mariposa % (Auto) 10.8 % (4.5-13.0) 07/11/18 11:30 Eos % (Auto) 1.1 % (0.6-7.6) 07/11/18 11:30 Baso % (Auto) 0.5 % (0.3-1.7) 07/11/18 11:30 Nucleat RBC Rel Count 0.0 % (0.0-0.2) 07/11/18 11:30 Absolute Neuts (auto) 5.91 10^3/uL (1.70-6.50) 07/11/18 11:30 Absolute Lymphs (auto) 1.07 10^3/uL (1.00-3.00) 07/11/18 11:30 Absolute Monos (auto) 0.86 10^3/uL (0.30-0.80) H 07/11/18 11:30 Absolute Eos (auto) 0.09 10^3/uL (0.03-0.40) 07/11/18 11:30 Absolute Basos (auto) 0.04 10^3/uL (0.02-0.10) 07/11/18 11:30 Absolute Nucleated RBC 0.00 10^3/uL (0-0.01) 07/11/18 11:30 Immature Gran % 0.3 % (0.0-1.1) 07/11/18 11:30 Immature Gran # 0.02 10^3/uL (0.00-0.10) 07/11/18 11:30 PT 12.6 SEC (12.0-15.0) 07/11/18 11:30 INR 0.92 (0.83-1.16) 07/11/18 11:30 APTT 32.2 SEC (23.0-38.0) 07/11/18 11:30 D-Dimer 2.22 ug/mLFEU (0.00-0.50) H 07/11/18 11:30 Sodium 137 mEq/L (135-145) 07/11/18 11:30 Potassium 5.5 mEq/L (3.3-5.0) H 07/11/18 11:30 Chloride 105 mEq/L (97-110) 07/11/18 11:30 Carbon Dioxide 23 mEq/l (22-31) 07/11/18 11:30 Anion Gap 9 mEq/L (6-14) 07/11/18 11:30 BUN 18 mg/dL (7-23) 07/11/18 11:30 Creatinine 0.6 mg/dL (0.7-1.3) L 07/11/18 11:30 Estimated GFR > 60 07/11/18 11:30 Glucose 118 mg/dL (70-100) H 07/11/18 11:30 Calcium 9.5 mg/dL (8.5-10.4) 07/11/18 11:30 POC Troponin I 0.00 ng/mL (0.00-0.08) 07/11/18 11:34 NT-Pro-B Natriuret Pep 193 pg/mL (0-125) H 07/11/18 11:30 Specimen Hemolysis 199 07/11/18 11:30 Visualized and Interpreted Chest x-ray results: Yes Chest X-Ray results: other (chf, cardiomegaly, right infiltrate and right pleural effusion) Visualized and Interpreted imaging results: Yes Interpretation: CTA: no PE, minimal pericardial effusion, loculated fluid right base Visualized and Interpreted EKG results: Yes EKG Interpretation: Positive for: normal sinsus rhythm EKG additional interpertation: low voltage Assessment & Plan Assessment: Dyspnea (Acute) Chest pain (Acute) Hyperkalemia (Acute) Non-small cell lung cancer (Acute) 62 yo M with hx of NSCLC with associated malignant pleural effusion and recent pericardial effusion with associated tamponade presenting with chest pain # chest pain: with w/u thus far reassuring including CTA but concerning given his recent life threatening tamponade so will observe at least overnight. Will get limited echo in am following discussion with radiology that this might be more able to delineate pericardial effusion extent. Serial trops/ecg and cardiology consult for am. # pleural effusion: with chronic malignant effusions, patient with left pleural drain in place currently with minimal output and per his report did have fairly recent right pleural drain as well that is now out. There is loculated right pleural effusion noted on CT, suspect this is chronic as well. Discussed with radiology, they have requested more recent imaging from [facility] but do not yet have those studies for direct comparison. # metastatic NSCLC: followed by [facility] in [place], has recently been started on Keytruda per his report # a fib: complication his last hospitalization, s/p CV # observation status Patient new to my care. Old records reviewed and summarized as above. Care plan reviewed with ER doctor as above.
[2018-07-11] MEDS: HYDROCODONE/APAP 5/325 TAB PO PRN (19:59)
[2018-07-11] MEDS: guaiFENesin 600 MG TAB.ER PO SCH (20:00)
[2018-07-11] MEDS: METOPROLOL TARTRATE 25 MG TAB PO SCH (20:00)
[2018-07-11] MEDS ORDERED: KETOROLAC 15 MG/1 ML SDV IVP PRN (23:48)
[2018-07-12] MEDS: HYDROCODONE/APAP 5/325 TAB PO PRN (01:20)
[2018-07-12 04:40] LABS: PLATELET COUNT 183 10^3/uL (150-400)
[2018-07-12] MEDS: METOPROLOL TARTRATE 25 MG TAB PO SCH (09:13)
[2018-07-12] MEDS: guaiFENesin 600 MG TAB.ER PO SCH (09:13)
[2018-07-12 11:28] VITALS: BP 133/83
--- NOTE | 2018-07-12 12:58 | ASMTCMCOM ---
CM Note CM Note Notes: Patient admitted with chest pain. He also has a hx of NSCLC and was recently admitted for cardiac tamponade w large plueral effusion. He has been doing well until this episode of chest pain. Per RN and hospitalist, he will likely be able to d/c today without any needs. Awaiting cardiology input. Case Management available if any d/c needs arise. Date Signed: 07/12/2018 12:58 PM Electronically Signed By:Kita Guerrero RN
--- NOTE | 2018-07-12 14:11 | GDS ---
DISCHARGE DIAGNOSES: 1. Atypical chest pain. 2. History of pericardial effusion requiring emergent pericardiocentesis on June 17, 2018. 3. Chronic malignant pleural effusion with a left pleural drain. 4. Metastatic non-small cell lung cancer. 5. Atrial fibrillation. CONSULTANTS: Dr. Joo Melendez, Cardiology. HISTORY: For details, please see history and physical dated July 11, 2018. The patient is a 62- year-old male with history of metastatic non-small cell lung cancer and recurrent malignant pleural e ffusion with recent hospitalization for pericardial effusion and evidence of cardiac tamponade requir ing pericardiocentesis who returned to the hospital with chest pain. He was admitted for further batsheva luation. HOSPITAL COURSE: Patient was admitted to the cardiac telemetry unit. CT pulmonary angiogram is nega tive for PE. There was concern for recurrent pericardial effusion. He underwent echocardiogram on t he morning after admission. I still do not have a formal report on this. However, I discussed the i kina study with our construction equipment technician who notes that there is no recurrent pericardial effusion. His tr oponins have been negative. His chest pain is resolved. He now queries if this is related to his pl eural drain, which has had very little output recently. He is interested in discussing with his onco logist if this may be removed. On the day of discharge, the patient is hemodynamically stable with a blood pressure 133/83, heart ra te 75, respiratory rate 15, he is 92% on room air. DISPOSITION: Patient is discharged home in stable condition. FOLLOWUP: 1. Dr. Cy Covington, Oncology. 2. Dr. Jos Fabian, Pulmonology. 3. Dr. Holden Bustos, primary care. DISCHARGE MEDICATIONS: Please see [employer] for completed medication list. New medications on discha rge include Tylenol 650 mg p.o. q.4 hours p.r.n. and ibuprofen 400 mg p.o. q.8 hours p.r.n. He will continue all other outpatient medications as previously prescribed including losartan, guaifenesin, o xycodone, metoprolol, and Keytruda as prescribed by his oncologist. /[id number]/MODL
--- NOTE | 2018-07-12 14:15 | ECHO ---
[email or web address] [address] [address] Main: [phone] Fax: Transthoracic Echocardiogram Name: JEB ZHAO MR#: [id number] Study Date: 07/12/2018 Study Time: 10:29 AM Date of : 1955 Age: 62 year(s) Height: 193 cm (76 in.) Weight: 117.94 kg (260 lb.) BSA: 2.48 m2 Gender: Male Examination: Limited Echo Indication: Hx of large pericardial effusion, CP Image Quality: Contrast: Requested by: Serenity Angel BP: 141 mmHg/86 mmHg Heart Rate: Rhythm: Normal sinus rhythm Indication: Hx of large pericardial effusion, CP Procedure Staff Accordion Repairer: Codey Cruz RDCS Reading Physician: Mata Wilkinson MD Requesting Provider: Conclusions: No pericardial effusion. Preserved left ventricular systolic function. Measurements: Chambers Valvular Assessment AV/MV Valvular Assessment TV/PV Normal Normal Normal Name Value Range Name Value Range Name Value Range IVSd (2D): 1.1 cm (0.6 cm-1.1 cm) LVDd (2D): 5.2 cm (4.2 cm-5.9 cm) LVDs (2D): 3.2 cm (2.1 cm-4 cm) LVPWd (2D): 1.4 cm (0.6 cm-1 cm) LVEF (2D): 69 (>=54 %) Continued Measurements: Findings: Exam Comments: This is a limited echo to evaluate for a recurrence of any pericardial effusion. The ejection fraction is normal and compared to the previous exam from 06/25/18 there is no evidence of a pericardial effusion and it appears resolved.. (No Signature Object) Patient: JEB ZHAO Study Date: 07/12/2018 Page 1 of 2 10:29 AM Patient: JEB ZHAO Study Date: 07/12/2018 Page 2 of 2 10:29 AM [id number]
[2018-07-12] MEDS ORDERED: LOSARTAN POTASSIUM 50 MG TAB PO SCH (21:00)
--- NOTE | 2018-07-15 19:13 | CPEKG ---
Test Reason : OPEN Blood Pressure : / mmHG Vent. Rate : 071 BPM Atrial Rate : 072 BPM P-R Int : 179 ms QRS Dur : 095 ms QT Int : 398 ms P-R-T Axes : 016 -19 013 degrees QTc Int : 433 ms Sinus rhythm Borderline left axis deviation Low voltage, precordial leads Confirmed by Jo-Ann Gutierrez ([id number]) on 07/15/2018 7:13:43 PM Referred By: Confirmed By:Jo-Ann Gutierrez
== END 2018-07-12 13:53 | disposition home or self-care (01) ==
LOC: F2W 16:35
PROVIDERS: ADMIT Internal Medicine; ATTEND Internal Medicine
DX: R07.9 Chest pain, unspecified (principal); R18.0 Malignant ascites; C34.90 Malignant neoplasm of unspecified part of unspecified bronchus or lung; I48.91 Unspecified atrial fibrillation; I10 Essential (primary) hypertension; E87.5 Hyperkalemia; Z87.891 Personal history of nicotine dependence
CPT/HCPCS: 71045; 71275; 93005; 93308; 96374; 99285; G0378; 84484-PO; J1885; Q9967